=== PATIENT | female | born 1950 | race Two or more races ===

== ENCOUNTER 2017-02-13 08:50 | Emergency (ER) | payer MEDICARE, BC ==
[~2017-02-13] VITALS: Ht 165.1 cm; Wt 87.5 kg
--- NOTE | 2017-02-13 09:26 | Emergency Room Report ---
History of Present Illness General Chief Complaint: Lower Extremity Injury Source: Patient Present Illness HPI Patient is a 66-year-old female who presented after increased pain to her left posterior thigh. The patient had injury proximal and 5 days prior to arrival. She stated this was at a grocery store which she slipped and did a partial split with her left leg forward. The patient reports being able to angulate after the injury. She reports having some bruising to the posterior leg. The patient did not seek medical care due to Yaz[employer] holidays Allergies: Coded Allergies: No Known Allergies (Unverified , 02/13/17) Patient History Reviewed Nursing Documentation: PMH: Agreed, PSxH: Agreed Nursing Documentation-PMH Past Medical History: No Stated History Review of Systems All Other Systems: negative except mentioned in HPI Physical Exam Vital Signs Date Time Temp Pulse Resp B/P (MAP) Pulse Ox O2 Delivery O2 Flow Rate FiO2 02/13/17 08:56 97.5 87 20 131/82 99 Room Air General Appearance: well appearing, no apparent distress, alert, GCS 15 Head: normocephalic, atraumatic ENT: hearing grossly normal, normal voice Neck: full range of motion, supple Respiratory: no respiratory distress, speaking full sentences Gastrointestinal: normal inspection, normal bowel sounds, non tender, soft Musculoskeletal: no calf tenderness, other - moderate bruising to left posterior thigh with small muscular defect to medial hamstring, normal flexion Neurologic: normal inspection, alert, oriented x3, responsive, theatre director III-XII nml as tested, normal gait Psychiatric: mood/affect normal Skin: no rash Medical Decision Making Diagnostic Impression: Primary Impression: Muscle tear Additional Impression: Multiple ecchymoses of thigh ER Course Patient presented for lower extremity pain. Differential diagnosis included but was not limited to fracture, contusion , vascular insufficiency, aortic aneurysm , cellulitis. Patient's benign exam and does not appear to require any further imaging or laboratory testing at this time. The patient appears to have some bruising consistent with a muscular injury. This did not appear to be a complete defect which will likely not require surgical intervention. The patient is advised to followup with a primary care physician for reexamination if pain persists. Last Vital Signs Date Time Temp Pulse Resp B/P (MAP) Pulse Ox O2 Delivery O2 Flow Rate FiO2 02/13/17 08:56 97.5 87 20 131/82 99 Room Air Status: improved Disposition: HOME, SELF-CARE Condition: Stable Referrals: NOT CHOSEN IPA/,REFERRING (PCP) Lj Weeks Feb 13, 2017 09:26
[2017-02-13 09:43] VITALS: BP 131/82
== END 2017-02-13 09:44 | disposition home or self-care (01) ==
LOC: EMR 09:05
DX: M79.652 Pain in left thigh (principal); T14.8 Other injury of unspecified body region; S70.12XA Contusion of left thigh, initial encounter; W01.0XXA Fall on same level from slipping, tripping and stumbling without subsequent striking against object, initial encounter; Y93.9 Activity, unspecified; Y92.512 Supermarket, store or market as the place of occurrence of the external cause
CPT/HCPCS: 99282